=== PATIENT | female | born 1975 | race African-American/Black ===

== ENCOUNTER 2023-01-28 11:16 | Outpatient (CLI) | payer OTHER, SELFPAY ==
--- NOTE | ~2023-01-28 | US_ITS ---
Thyroid ultrasound. Clinical History: Neck swelling Findings: Real-time sonography of the thyroid gland was performed. The right lobe measures 3.8 x 1.5 x 1.9 cm. The left lobe measures 3.6 x 1.7 x 1.4 cm. The isthmus is 3 mm in AP diameter. No thyroid nodule identified. Impression: No significant abnormality seen.. Reviewed, dictated and finalized at location . Impression: No significant abnormality seen..
== END 2023-01-28 11:17 | disposition home or self-care (01) ==
PROVIDERS: PCP Registered Nurse; Visit Provider Registered Nurse
DX: R22.1 Localized swelling, mass and lump, neck (principal)
CPT/HCPCS: 76536